=== PATIENT | female | born 1960 | race African-American/Black ===

== ENCOUNTER 2017-02-17 03:40 | Emergency (ER) | payer MEDICARE, MEDICAID ==
[~2017-02-17] VITALS: Ht 162.6 cm; Wt 39.5 kg
[2017-02-17] MEDS ORDERED: MORPHINE SULFATE 4 MG/ML CPJ (NOT FOR IM USE) IV ONE (06:54)
[2017-02-17] MEDS ORDERED: ONDANSETRON HCL 4MG/2ML VIAL ONE (06:55)
[2017-02-17] MEDS ORDERED: SODIUM CHLORIDE 0.9% 1,000 ML IV ONE (07:45)
[2017-02-17 09:08] LABS: CLARITY URINE CLOUDY (CLEAR); COLOR URINE DARK YELLOW (YELLOW); GLUCOSE URINE NEGATIVE (NEGATIVE); KETONES URINE TRACE (NEGATIVE); LEUKOCYTE ESTERASE URINE NEGATIVE (NEGATIVE); NITRITE URINE NEGATIVE (NEGATIVE); OCCULT BLOOD URINE 1+ (NEGATIVE); PROTEIN URINE 2+ (NEGATIVE); SPECIFIC GRAVITY URINE 1.028 (1.005-1.030)
[2017-02-17 11:07] LABS: BASOPHILS % 0.3 % (0.0-2.0); EOSINOPHILS % 0.2 % (0.0-5.0); HEMATOCRIT. 40.2 % (36.0-48.0); LYMPHOCYTES % 20.8 % (20.0-50.0); MEAN CORPUSCULAR VOLUME 74.5 fL (81.0-99.0); MEAN PLATELET VOLUME 7.7 fl (7.4-10.4); MONOCYTES % 10.1 % (2.0-8.0); NEUTROPHILS % 68.6 % (40.0-76.0); PLATELET 220 x1000/uL (130-400)
[2017-02-17 11:23] LABS: CARBON DIOXIDE 31 mEq/L (21-32); CHLORIDE 105 mEq/L (98-107)
[2017-02-17 11:57] VITALS: BP 116/70
[2017-02-17] MEDS ORDERED: SODIUM CHLORIDE 0.9% 10ML VIAL ONE (12:52)
[2017-02-17] MEDS ORDERED: IOHEXOL-300 100 ML BOTTLE ONE (12:52)
== END 2017-02-17 13:59 | disposition home or self-care (01) ==
LOC: ER 03:40
DX: R10.84 Generalized abdominal pain (principal); R11.10 Vomiting, unspecified; N28.1 Cyst of kidney, acquired; Z20.6 Contact with and (suspected) exposure to human immunodeficiency virus [HIV]; Z98.890 Other specified postprocedural states
CPT/HCPCS: 36415; 74177; 80048; 80076; 81001; 83605; 83690; 85025; 96360; 96361; 99285; A4216; J2270; J2405; Q9967

== ENCOUNTER 2017-06-23 03:14 | Emergency (ER) | payer MEDICARE, MEDICAID ==
[~2017-06-23] VITALS: Ht 162.6 cm; Wt 62.0 kg
[2017-06-23] MEDS ORDERED: ONDANSETRON HCL 4MG/2ML VIAL IV STA (03:48)
[2017-06-23] MEDS ORDERED: FAMOTIDINE 20MG/2ML VIAL IV STA (03:48)
[2017-06-23] MEDS ORDERED: SODIUM CHLORIDE 0.9% 1,000 ML IV ONE (03:48)
[2017-06-23] MEDS ORDERED: FENTANYL CITRATE/PF 50MCG/ML 2ML VIAL IV ONE (04:00)
[2017-06-23 04:08] LABS: BASOPHILS % 0.7 % (0.0-2.0); EOSINOPHILS % 0.9 % (0.0-5.0); HEMATOCRIT. 41.5 % (36.0-48.0); HEMOGLOBIN. 13.4 g/dL (12.0-16.0); LYMPHOCYTES % 25.2 % (20.0-50.0); MEAN CORPUSCULAR HEMOGLOBIN 24.3 pg (28.0-32.0); MEAN CORPUSCULAR VOLUME 75.4 fL (81.0-99.0); MEAN PLATELET VOLUME 7.6 fl (7.4-10.4); MONOCYTES % 7.8 % (2.0-8.0); NEUTROPHILS % 65.4 % (40.0-76.0); PLATELET 238 x1000/uL (130-400); RED CELL DISTRIBUTION WIDTH 15.9 % (11.6-14.6)
[2017-06-23 04:13] LABS: PROTHROMBIN TIME 10.5 sec (9.4-11.6)
[2017-06-23 04:23] LABS: CARBON DIOXIDE 32 mEq/L (21-32); CHLORIDE 106 mEq/L (98-107); ETHANOL BLOOD < 10 mg/dL; TROPONIN I < 0.02 ng/mL (0.00-0.04)
[2017-06-23 05:56] VITALS: BP 135/78
== END 2017-06-23 06:10 | disposition home or self-care (01) ==
LOC: ER 03:14
DX: R10.9 Unspecified abdominal pain (principal); K59.00 Constipation, unspecified; K44.9 Diaphragmatic hernia without obstruction or gangrene; F17.210 Nicotine dependence, cigarettes, uncomplicated; M43.19 Spondylolisthesis, multiple sites in spine
CPT/HCPCS: 36415; 71010; 74176; 80053; 83605; 83690; 84484; 85025; 85610; 93005; 96361; 96374; 96375; 99285; G0482; J2405; J3010; J3490; J7030

== ENCOUNTER 2018-02-22 14:36 | Emergency (ER) | payer MEDICARE, MEDICAID ==
[~2018-02-22] VITALS: Ht 167.6 cm; Wt 75.0 kg
[2018-02-22 16:19] LABS: BASOPHILS % 0.9 % (0.0-2.0); EOSINOPHILS % 0.3 % (0.0-5.0); HEMATOCRIT. 42.6 % (36.0-48.0); HEMOGLOBIN. 13.8 g/dL (12.0-16.0); LYMPHOCYTES % 26.3 % (20.0-50.0); MEAN CORPUSCULAR HEMOGLOBIN 24.7 pg (28.0-32.0); MEAN CORPUSCULAR VOLUME 76.3 fL (81.0-99.0); MEAN PLATELET VOLUME 7.7 fl (7.4-10.4); MONOCYTES % 6.5 % (2.0-8.0); PLATELET 224 x1000/uL (130-400); RED BLOOD CELL COUNT 5.58 mill/uL (4.2-5.4); RED CELL DISTRIBUTION WIDTH 15.9 % (11.6-14.6)
[2018-02-22 16:23] LABS: PROTHROMBIN TIME 10.5 sec (9.4-11.6)
[2018-02-22 16:24] LABS: CHLORIDE 103 mEq/L (98-107)
[2018-02-22] MEDS ORDERED: METOCLOPRAMIDE HCL 10MG/2ML VIAL IV STA (17:11)
[2018-02-22] MEDS ORDERED: MORPHINE SULFATE 4 MG/ML CPJ (NOT FOR IM USE) IV STA (17:11)
[2018-02-22] MEDS ORDERED: SODIUM CHLORIDE 0.9% 1,000 ML IV ONE (17:11)
[2018-02-22 22:34] VITALS: BP 145/95
== END 2018-02-22 23:16 | disposition home or self-care (01) ==
LOC: ER 15:00
DX: R10.13 Epigastric pain (principal); M43.16 Spondylolisthesis, lumbar region; Z21 Asymptomatic human immunodeficiency virus [HIV] infection status; Z98.890 Other specified postprocedural states; Z87.11 Personal history of peptic ulcer disease
CPT/HCPCS: 36415; 74177; 80053; 83605; 83690; 85025; 85610; 86850; 86900; 86901; 96361; 96374; 96375; 99285; J2270; J2765; J7030

== ENCOUNTER 2018-08-04 09:09 | Inpatient (IN) | payer MEDICARE, MEDICAID ==
[~2018-08-04] VITALS: Ht 162.6 cm; Wt 46.3 kg
[2018-08-04] MEDS ORDERED: MORPHINE SULFATE 4 MG/ML CPJ (NOT FOR IM USE) IV STA ×3 (09:31→17:32)
[2018-08-04] MEDS ORDERED: ONDANSETRON HCL 4MG/2ML INJ IV STA (09:31)
[2018-08-04] MEDS ORDERED: SODIUM CHLORIDE 0.9% 1,000 ML IV ONE ×2 (09:31→10:15)
[2018-08-04 09:59] LABS: BASOPHILS % 0.3 % (0.0-2.0); HEMATOCRIT. 47.2 % (36.0-48.0); HEMOGLOBIN. 15.5 g/dL (12.0-16.0); LYMPHOCYTES % 13.5 % (20.0-50.0); MEAN CORPUSCULAR HEMOGLOBIN 24.9 pg (28.0-32.0); MEAN CORPUSCULAR VOLUME 75.8 fL (81.0-99.0); MEAN PLATELET VOLUME 8.5 fl (7.4-10.4); MONOCYTES % 8.4 % (2.0-8.0); NEUTROPHILS % 77.8 % (40.0-76.0); PLATELET 253 x1000/uL (130-400); RED BLOOD CELL COUNT 6.23 mill/uL (4.2-5.4); RED CELL DISTRIBUTION WIDTH 16.1 % (11.6-14.6)
[2018-08-04 10:02] LABS: CHLORIDE 93 mEq/L (98-107)
[2018-08-04 10:08] LABS: ETHANOL BLOOD < 10 mg/dL
[2018-08-04] MEDS ORDERED: DEXTROSE 50% WATER 50ML SYRINGE IV ONE (10:30)
[2018-08-04] MEDS ORDERED: INSULIN REGULAR (HUMULIN R) 300UNITS/3ML IV ONE (10:30)
[2018-08-04] MEDS ORDERED: CALCIUM GLUCONATE 1,000 MG in DEXT 5% WATER 100 ML IV ONE (10:30)
[2018-08-04 10:48] LABS: INR 1.1; PROTHROMBIN TIME 10.7 sec (9.1-11.1)
[2018-08-04 10:52] LABS: CLARITY URINE CLOUDY (CLEAR); COLOR URINE YELLOW (YELLOW); KETONES URINE NEGATIVE (NEGATIVE); LEUKOCYTE ESTERASE URINE NEGATIVE (NEGATIVE); NITRITE URINE NEGATIVE (NEGATIVE); OCCULT BLOOD URINE 1+ (NEGATIVE); PROTEIN URINE 2+ (NEGATIVE); UROBILINOGEN URINE 0.2 E.U./dL (0.2-1.0)
[2018-08-04 11:14] LABS: *AMPHETAMINES SCREEN URINE NEGATIVE (NEGATIVE); *BARBITURATES SCREEN URINE NEGATIVE (NEGATIVE); *BENZODIAZEPINES SCREEN URINE NEGATIVE (NEGATIVE); *COCAINE SCREEN URINE PRESUMTIVE POSITIVE (NEGATIVE); CANNABINOID URINE SCREEN NEGATIVE (NEGATIVE); METHADONE URINE SCREEN NEGATIVE (NEGATIVE); OPIATES URINE SCREEN PRESUMTIVE POSITIVE (NEGATIVE); PHENCYCLIDINE URINE SCREEN NEGATIVE (NEGATIVE)
[2018-08-04] MEDS ORDERED: POLYETHYLENE GLYCOL 3350 (17GM) 1 DOSE PACK PO ONE (12:15)
[2018-08-04] MEDS ORDERED: ACETAMINOPHEN 650MG SUPP PR PRN (18:45)
[2018-08-04] MEDS ORDERED: IPRATROPIUM/ALBUTEROL 0.5-3(2.5)MG/3ML NEB INH PRN (18:45)
[2018-08-04] MEDS ORDERED: HYDROCODONE/ACETAMINOPHEN 10/325MG TABLET PO PRN (18:45)
[2018-08-04] MEDS ORDERED: DOCUSATE SODIUM 100MG CAPSULE PO PRN (18:45)
[2018-08-04] MEDS ORDERED: CLONIDINE 0.1MG TABLET PO PRN (18:45)
[2018-08-04] MEDS ORDERED: GUAIFENESIN 200MG/10ML SUGAR FREE UDC PO PRN (18:45)
[2018-08-04] MEDS ORDERED: MAGNESIUM/ALUMINUM HYDROXIDE/SIMETHICONE 30ML UDC PO PRN (18:45)
[2018-08-04] MEDS ORDERED: HYDROCODONE/ACETAMINOPHEN 5/325MG TABLET PO PRN (18:45)
[2018-08-04] MEDS ORDERED: ACETAMINOPHEN 325MG TABLET PO PRN (18:45)
[2018-08-04] MEDS ORDERED: ONDANSETRON HCL 4MG/2ML INJ IV PRN (18:45)
[2018-08-04] MEDS ORDERED: ACETAMINOPHEN 650MG/20.3ML UDC GT PRN (18:45)
[2018-08-04 20:00] VITALS: BP 115/68
[2018-08-04] MEDS ORDERED: EMTR1TAB13 MT (20:50)
[2018-08-04] MEDS ORDERED: CEFTRIAXONE 1 G PREMIX 50 ML IV SCH (21:00)
[2018-08-04] MEDS ORDERED: ENOXAPARIN 40MG/0.4ML SYR SUBCUT SCH (21:00)
[2018-08-04] MEDS: ENOXAPARIN 30MG/0.3ML SYR SUBCUT SCH (21:00)
[2018-08-04] MEDS: SODIUM CHLORIDE 0.9% INJ 3ML FLUSH IVF SCH (22:10)
[2018-08-04] MEDS: FAMOTIDINE 20MG/2ML VIAL IV SCH (22:10)
[2018-08-04] MEDS: SODIUM CHLORIDE 0.45% 1,000 ML IV SCH (22:11)
[2018-08-04] MEDS ORDERED: [UNRECOGNIZED DRUG - OTHER] MT SCH (22:30)
[2018-08-05] VITALS: BP 94/51
[2018-08-05] MEDS: METOCLOPRAMIDE HCL 10MG/2ML VIAL IV SCH ×4 (01:57→17:32)
[2018-08-05 03:46] VITALS: BP 97/64
[2018-08-05] MEDS: SODIUM CHLORIDE 0.45% 1,000 ML IV SCH ×2 (05:52→17:32)
[2018-08-05] MEDS: SODIUM CHLORIDE 0.9% INJ 3ML FLUSH IVF SCH ×3 (05:52→21:13)
[2018-08-05 06:55] LABS: BASOPHILS % 0.4 % (0.0-2.0); EOSINOPHILS % 0.6 % (0.0-5.0); HEMOGLOBIN. 12.6 g/dL (12.0-16.0); LYMPHOCYTES % 40.1 % (20.0-50.0); MEAN CORPUSCULAR HEMOGLOBIN 24.4 pg (28.0-32.0); MEAN CORPUSCULAR VOLUME 77.3 fL (81.0-99.0); MEAN PLATELET VOLUME 8.2 fl (7.4-10.4); MONOCYTES % 9.4 % (2.0-8.0); NEUTROPHILS % 49.5 % (40.0-76.0); PLATELET 203 x1000/uL (130-400); RED BLOOD CELL COUNT 5.18 mill/uL (4.2-5.4)
[2018-08-05 07:23] LABS: CHLORIDE 105 mEq/L (98-107)
[2018-08-05 07:37] LABS: HDL CHOLESTEROL 85 mg/dL (40-59); LDL CHOLESTEROL 67 mg/dL (5-100)
[2018-08-05 08:00] VITALS: BP 94/63
[2018-08-05] MEDS: FAMOTIDINE 20MG/2ML VIAL IV SCH (08:41)
[2018-08-05 12:00] VITALS: BP 103/61
[2018-08-05] MEDS ORDERED: ACYC200C PO (13:32)
[2018-08-05 16:00] VITALS: BP 101/56
[2018-08-05] MEDS ORDERED: CEFTRIAXONE 1 G PREMIX 50 ML IV SCH (18:00)
[2018-08-05 20:00] VITALS: BP 86/43
[2018-08-05] MEDS: ENOXAPARIN 30MG/0.3ML SYR SUBCUT SCH (21:12)
[2018-08-06] VITALS: BP 128/73
[2018-08-06] MEDS: METOCLOPRAMIDE HCL 10MG/2ML VIAL IV SCH ×3 (01:07→11:59)
[2018-08-06] MEDS: SODIUM CHLORIDE 0.45% 1,000 ML IV SCH ×2 (01:07→10:49)
[2018-08-06 03:50] VITALS: BP 117/75
[2018-08-06] MEDS: SODIUM CHLORIDE 0.9% INJ 3ML FLUSH IVF SCH ×2 (05:54→13:58)
[2018-08-06 08:19] VITALS: BP 118/74
[2018-08-06] MEDS: FAMOTIDINE 20MG/2ML VIAL IV SCH (08:31)
[2018-08-06] MEDS ORDERED: ODEFSEY PO SCH (09:00)
[2018-08-06] MEDS ORDERED: ACYCLOVIR 400 MG TABLET PO SCH (09:00)
[2018-08-06] MEDS ORDERED: MEDICATION NOT ON FORMULARY EA (Acyclovir 400 MG) PO SCH (09:00)
[2018-08-06 11:56] VITALS: BP 105/63
[2018-08-06 16:00] VITALS: BP_SYST 105; BP_SYST 115; BP_DIAS 63; BP_DIAS 70
[2018-08-06 17:19] VITALS: BP 118/70
== END 2018-08-06 18:20 | disposition home or self-care (01) | DRG 917 ==
LOC: ER 09:09 → 6WST 10:30 → EDBEDREQ 10:33 → ENRESERV 17:10
PROVIDERS: ADMIT Family Medicine; ATTEND Family Medicine
DX: T40.5X1A Poisoning by cocaine, accidental (unintentional), initial encounter (principal); N17.0 Acute kidney failure with tubular necrosis; E87.1 Hypo-osmolality and hyponatremia; N39.0 Urinary tract infection, site not specified; Z21 Asymptomatic human immunodeficiency virus [HIV] infection status; E87.5 Hyperkalemia; N18.9 Chronic kidney disease, unspecified; K21.9 Gastro-esophageal reflux disease without esophagitis; K59.00 Constipation, unspecified; F14.90 Cocaine use, unspecified, uncomplicated; E86.0 Dehydration; R10.9 Unspecified abdominal pain
CPT/HCPCS: 36415; 71045; 74176; 76770; 80048; 80061; 80305; 82962; 83605; 84484; 99285; G0482; J0610; J0696; J1650; J1815; J2270; J2405; J2765; J3490; J7030; J7050; J7060

== ENCOUNTER 2018-08-13 05:09 | Emergency (ER) | payer MEDICARE, MEDICAID ==
[~2018-08-13] VITALS: Ht 165.1 cm; Wt 71.0 kg
[~2018-08-13 05:09] MED LIST: ACYC200C PO; EMTR1TAB13 MT
[2018-08-13] MEDS ORDERED: KETOROLAC 30MG/ML VIAL IV STA (05:31)
[2018-08-13] MEDS ORDERED: ONDANSETRON HCL 4MG/2ML INJ IV STA (05:31)
[2018-08-13] MEDS ORDERED: SODIUM CHLORIDE 0.9% 1,000 ML IV ONE ×2 (05:36→08:00)
[2018-08-13 06:41] LABS: BASOPHILS % 0.6 % (0.0-2.0); EOSINOPHILS % 0.5 % (0.0-5.0); HEMATOCRIT. 44.9 % (36.0-48.0); HEMOGLOBIN. 14.5 g/dL (12.0-16.0); LYMPHOCYTES % 22.4 % (20.0-50.0); MEAN CORPUSCULAR HEMOGLOBIN 24.8 pg (28.0-32.0); MEAN CORPUSCULAR VOLUME 76.9 fL (81.0-99.0); MEAN PLATELET VOLUME 8.5 fl (7.4-10.4); MONOCYTES % 11.7 % (2.0-8.0); NEUTROPHILS % 64.8 % (40.0-76.0); PLATELET 256 x1000/uL (130-400); RED BLOOD CELL COUNT 5.83 mill/uL (4.2-5.4); RED CELL DISTRIBUTION WIDTH 16.1 % (11.6-14.6)
[2018-08-13 06:45] LABS: CLARITY URINE CLEAR (CLEAR); COLOR URINE YELLOW (YELLOW); KETONES URINE TRACE (NEGATIVE); LEUKOCYTE ESTERASE URINE NEGATIVE (NEGATIVE); NITRITE URINE NEGATIVE (NEGATIVE); OCCULT BLOOD URINE TRACE (NEGATIVE); PROTEIN URINE 2+ (NEGATIVE)
[2018-08-13 06:51] LABS: CHLORIDE 98 mEq/L (98-107)
[2018-08-13 07:36] LABS: *AMPHETAMINES SCREEN URINE NEGATIVE (NEGATIVE); *BARBITURATES SCREEN URINE NEGATIVE (NEGATIVE); *BENZODIAZEPINES SCREEN URINE NEGATIVE (NEGATIVE); *COCAINE SCREEN URINE PRESUMTIVE POSITIVE (NEGATIVE); CANNABINOID URINE SCREEN PRESUMTIVE POSITIVE (NEGATIVE); METHADONE URINE SCREEN NEGATIVE (NEGATIVE); OPIATES URINE SCREEN PRESUMTIVE POSITIVE (NEGATIVE); PHENCYCLIDINE URINE SCREEN NEGATIVE (NEGATIVE)
[2018-08-13] MEDS ORDERED: VISCOUS LIDOCAINE 2% 15 ML UDC PO ONE (08:00)
[2018-08-13] MEDS ORDERED: DICYCLOMINE 10 MG/5 ML ORAL SYR PO ONE (08:00)
[2018-08-13] MEDS ORDERED: MAGNESIUM/ALUMINUM HYDROXIDE/SIMETHICONE 30ML UDC PO ONE (08:00)
[2018-08-13] MEDS ORDERED: FAMOTIDINE 20MG/2ML VIAL IV ONE (08:00)
[2018-08-13 10:21] VITALS: BP 128/80
== END 2018-08-13 10:32 | disposition home or self-care (01) ==
LOC: ER 05:09
DX: R10.13 Epigastric pain (principal); R11.2 Nausea with vomiting, unspecified; R07.89 Other chest pain; R31.9 Hematuria, unspecified; F14.10 Cocaine abuse, uncomplicated; F12.10 Cannabis abuse, uncomplicated; F11.10 Opioid abuse, uncomplicated; F17.200 Nicotine dependence, unspecified, uncomplicated; Z79.899 Other long term (current) drug therapy
CPT/HCPCS: 36415; 71045; 80053; 80305; 81003; 83690; 83880; 84484; 85025; 93005; 96361; 96374; 96375; 99285; J1885; J2405; J3490; J7030

== ENCOUNTER 2018-11-29 02:05 | Emergency (ER) | payer MEDICARE, MEDICAID ==
[~2018-11-29] VITALS: Ht 162.6 cm; Wt 45.0 kg
[2018-11-29] MEDS ORDERED: KETOROLAC 30MG/ML VIAL IV STA (09:03)
[2018-11-29] MEDS ORDERED: SODIUM CHLORIDE 0.9% 1,000 ML IV ONE (09:03)
[2018-11-29] MEDS ORDERED: ONDANSETRON HCL 4MG/2ML INJ IV STA (09:03)
[2018-11-29] MEDS ORDERED: FAMOTIDINE 20MG/2ML VIAL IV ONE (09:15)
[2018-11-29 10:24] LABS: BASOPHILS % 0.5 % (0.0-2.0); EOSINOPHILS % 0.4 % (0.0-5.0); HEMATOCRIT. 55.9 % (36.0-48.0); HEMOGLOBIN. 17.7 g/dL (12.0-16.0); LYMPHOCYTES % 19.5 % (20.0-50.0); MEAN CORPUSCULAR VOLUME 79.2 fL (81.0-99.0); MEAN PLATELET VOLUME 8.4 fl (7.4-10.4); NEUTROPHILS % 72.6 % (40.0-76.0); PLATELET 245 x1000/uL (130-400); RED BLOOD CELL COUNT 7.07 mill/uL (4.2-5.4); RED CELL DISTRIBUTION WIDTH 15.5 % (11.6-14.6)
[2018-11-29] MEDS ORDERED: LORAZEPAM 2MG/ML CPJ IM ONE (10:30)
[2018-11-29] MEDS ORDERED: DIPHENHYDRAMINE 50MG/ML VIAL IM ONE (10:30)
[2018-11-29 10:40] LABS: CHLORIDE 90 mEq/L (98-107)
[2018-11-29 12:07] LABS: CLARITY URINE CLOUDY (CLEAR); COLOR URINE YELLOW (YELLOW); KETONES URINE NEGATIVE (NEGATIVE); LEUKOCYTE ESTERASE URINE NEGATIVE (NEGATIVE); NITRITE URINE NEGATIVE (NEGATIVE); OCCULT BLOOD URINE 1+ (NEGATIVE); PROTEIN URINE 1+ (NEGATIVE); SPECIFIC GRAVITY URINE 1.024 (1.005-1.030); UROBILINOGEN URINE 0.2 E.U./dL (0.2-1.0)
[2018-11-29 13:02] VITALS: BP 115/76
== END 2018-11-29 15:13 | disposition home or self-care (01) ==
LOC: ER 02:05
DX: K59.00 Constipation, unspecified (principal); E86.0 Dehydration; R73.9 Hyperglycemia, unspecified; F14.10 Cocaine abuse, uncomplicated; R30.0 Dysuria
CPT/HCPCS: 36415; 74176; 80053; 81003; 83690; 85025; 99284; J1200; J1885; J2060; J2405; J3490; J7030

== ENCOUNTER 2019-10-15 21:56 | Inpatient (IN) | payer MEDICARE, MEDICAID ==
[~2019-10-15] VITALS: Ht 172.7 cm; Wt 45.8 kg
[~2019-10-15 21:56] MED LIST changes: +ALBU18HF2 IH; +AMLO5TAB88 MT; +IPRA3AMP9 NEB; +LOSA50TA41 MT; +P20 MT; +SULF1TAB48 MT
[2019-10-15] MEDS ORDERED: MORPHINE SULFATE 4 MG/ML CPJ (NOT FOR IM USE) IV STA (23:38)
[2019-10-15] MEDS ORDERED: SODIUM CHLORIDE 0.9% 1,000 ML IV ONE (23:38)
[2019-10-15] MEDS ORDERED: ONDANSETRON HCL 4MG/2ML INJ IV STA (23:38)
[2019-10-16 00:13] LABS: BASOPHILS % 0.8 % (0.0-2.0); EOSINOPHILS % 0.1 % (0.0-5.0); HEMOGLOBIN. 11.9 g/dL (12.0-16.0); LYMPHOCYTES % 15.2 % (20.0-50.0); MEAN CORPUSCULAR HEMOGLOBIN 24.9 pg (28.0-32.0); MEAN CORPUSCULAR VOLUME 77.4 fL (81.0-99.0); MEAN PLATELET VOLUME 8.3 fl (7.4-10.4); MONOCYTES % 5.5 % (2.0-8.0); NEUTROPHILS % 78.4 % (40.0-76.0); PLATELET 276 x1000/uL (130-400); RED BLOOD CELL COUNT 4.78 mill/uL (4.2-5.4); RED CELL DISTRIBUTION WIDTH 16.3 % (11.6-14.6)
[2019-10-16 00:21] LABS: CHLORIDE 104 mEq/L (98-107)
[2019-10-16 00:22] LABS: BG BASE EXCESS 2.7 mmol/L (-2.0-2.0); BG CARBOXYHEMOGLOBIN 2.5 % (0.5-1.5); BG DEOXYHEMOGLOBIN 4.6 % (0.0-5.0); BG FRACTION INSPIRED OXYGEN 21; BG HCO3 ACT 26.9 mmol/L (22.0-26.0); BG OXYGEN SATURATION 95.3 % (92.0-98.5); BG OXYHEMOGLOBIN 92.9 % (94.0-97.0); BG PCO2 40.1 mmHg (35.0-45.0); BG PH 7.445 (7.350-7.450); BG PO2 76.6 mmHg (75.0-100.0); BG SAMPLE SITE RIGHT BRACHIAL; BG VENT MODE ROOM AIR
[2019-10-16 00:23] LABS: INR 0.9; PARTIAL THROMBOPLASTIN TIME 23.1 sec (23.4-31.0); PROTHROMBIN TIME 9.6 sec (9.6-11.0)
[2019-10-16 00:25] LABS: ETHANOL BLOOD < 10 mg/dL
[2019-10-16 02:35] LABS: CLARITY URINE CLOUDY (CLEAR); COLOR URINE YELLOW (YELLOW); KETONES URINE NEGATIVE (NEGATIVE); LEUKOCYTE ESTERASE URINE NEGATIVE (NEGATIVE); NITRITE URINE NEGATIVE (NEGATIVE); OCCULT BLOOD URINE NEGATIVE (NEGATIVE); PH URINE >=9.0 (4.5-8.0); PROTEIN URINE 1+ (NEGATIVE); SPECIFIC GRAVITY URINE 1.018 (1.005-1.030); UROBILINOGEN URINE 0.2 E.U./dL (0.2-1.0)
[2019-10-16 02:59] LABS: *AMPHETAMINES SCREEN URINE NEGATIVE (NEGATIVE); *BARBITURATES SCREEN URINE NEGATIVE (NEGATIVE); *BENZODIAZEPINES SCREEN URINE NEGATIVE (NEGATIVE); *COCAINE SCREEN URINE PRESUMTIVE POSITIVE (NEGATIVE); OPIATES URINE SCREEN PRESUMTIVE POSITIVE (NEGATIVE); PHENCYCLIDINE URINE SCREEN NEGATIVE (NEGATIVE)
[2019-10-16 03:00] LABS: CANNABINOID URINE SCREEN NEGATIVE (NEGATIVE); METHADONE URINE SCREEN NEGATIVE (NEGATIVE)
[2019-10-16] MEDS ORDERED: SORBITOL 70% SOLN 30ML PO ONE (03:00)
[2019-10-16] MEDS ORDERED: MORPHINE SULFATE 4 MG/ML CPJ (NOT FOR IM USE) IV ONE (03:00)
[2019-10-16] MEDS ORDERED: ONDANSETRON HCL 4MG/2ML INJ IV ONE (03:00)
[2019-10-16] MEDS ORDERED: NA PHOS,M-B/NA PHOS,DI-BA ENEMA 118ML PR ONE (03:00)
[2019-10-16] MEDS ORDERED: LORAZEPAM 2MG/ML CPJ IV ONE (05:00)
[2019-10-16] MEDS ORDERED: METOCLOPRAMIDE HCL 10MG/2ML VIAL IV ONE (05:00)
[2019-10-16] MEDS ORDERED: FENTANYL CITRATE/PF 50MCG/ML 2ML VIAL IV ONE (06:00)
[2019-10-16] MEDS ORDERED: DOCUSATE SODIUM 100MG CAPSULE PO PRN (09:00)
[2019-10-16] MEDS ORDERED: GUAIFENESIN 200MG/10ML SUGAR FREE UDC PO PRN (09:00)
[2019-10-16] MEDS ORDERED: NA PHOS,M-B/NA PHOS,DI-BA ENEMA 118ML PR PRN (09:00)
[2019-10-16] MEDS ORDERED: ZOLPIDEM TARTRATE 5MG TABLET PO PRN (09:00)
[2019-10-16] MEDS ORDERED: ACETAMINOPHEN 325MG TABLET PO PRN (09:00)
[2019-10-16] MEDS ORDERED: CLONIDINE 0.1MG TABLET PO PRN (09:00)
[2019-10-16] MEDS ORDERED: IPRATROPIUM/ALBUTEROL 0.5-3(2.5)MG/3ML NEB NEB PRN (09:00)
[2019-10-16] MEDS ORDERED: MAGNESIUM/ALUMINUM HYDROXIDE/SIMETHICONE 30ML UDC PO PRN (09:00)
[2019-10-16] MEDS ORDERED: ONDANSETRON HCL 4MG/2ML INJ IV PRN (09:00)
[2019-10-16 12:00] VITALS: BP 130/82
[2019-10-16 12:42] LABS: T4 FREE 1.17 ng/dL (0.76-1.46)
[2019-10-16 12:52] LABS: FOLIC ACID (FOLATE) SERUM 12.9 ng/mL (>5.38)
[2019-10-16] MEDS: LACTULOSE 20G/30ML UDC PO SCH ×3 (13:06→22:21)
[2019-10-16] MEDS: ENOXAPARIN 40MG/0.4ML SYR SUBCUT SCH (13:06)
[2019-10-16 16:00] VITALS: BP 128/82
[2019-10-16 17:02] VITALS: BP 122/68
[2019-10-16] MEDS: LORAZEPAM 0.5MG TABLET PO PRN (19:49)
[2019-10-16] MEDS: KETOROLAC 15MG/ML VIAL IV PRN (19:50)
[2019-10-16 20:00] VITALS: BP 103/67
[2019-10-17] VITALS (17 sets, daily range): BP systolic 47–167; BP diastolic 26–107
[2019-10-17] MEDS: KETOROLAC 15MG/ML VIAL IV PRN ×2 (01:20→08:13)
[2019-10-17] MEDS: LACTULOSE 20G/30ML UDC PO SCH ×7 (01:20→23:58)
[2019-10-17] MEDS: LORAZEPAM 0.5MG TABLET PO PRN (04:01)
[2019-10-17] MEDS: ENOXAPARIN 40MG/0.4ML SYR SUBCUT SCH (08:13)
[2019-10-17] MEDS: DEXT 5%/LACTATED RINGERS 1,000 ML IV SCH ×2 (08:13→08:34)
[2019-10-17] MEDS: PANTOPRAZOLE SODIUM 40 MG/VIAL IV SCH (08:13)
[2019-10-17] MEDS ORDERED: BISACODYL 10MG SUPP PR NR (10:00)
[2019-10-17] MEDS ORDERED: MINERAL OIL ENEMA 133ML PR NR (11:00)
[2019-10-17] MEDS: METOCLOPRAMIDE HCL 10MG/2ML VIAL IV SCH ×3 (11:01→23:58)
[2019-10-17] MEDS ORDERED: DIATR MEGLU/DIATRIZOATE SOLN 120ML ONE (15:12)
[2019-10-17] MEDS: DEXT 5%/0.45% NACL 1000ML 1,000 ML IV SCH ×2 (16:12→22:46)
[2019-10-17] MEDS ORDERED: BUPIVACAINE HCL 0.5% (5MG/ML) 50ML ONE (16:33)
[2019-10-17] MEDS ORDERED: PIPERACILLIN/TAZOBACTAM 3.375 G in DEXT 5% WATER 100 ML IV SCH (17:00)
[2019-10-17] MEDS ORDERED: PIPERACILLIN/TAZOBACTAM 3.375 G/VIAL IV SCH (17:00)
[2019-10-17] MEDS ORDERED: FENTANYL CITRATE/PF 50MCG/ML 2ML VIAL ONE (17:09)
[2019-10-17] MEDS ORDERED: ONDANSETRON HCL 4MG/2ML INJ ONE (17:10)
[2019-10-17] MEDS ORDERED: GLYCOPYRROLATE 0.2 MG/ML 2ML VIAL ONE (17:10)
[2019-10-17] MEDS ORDERED: MIDAZOLAM HCL 2 MG/2 ML VIAL ONE (17:10)
[2019-10-17] MEDS ORDERED: PHENYLEPHRINE HCL 10 MG/ML 1ML (IV VIAL) IV ONE (17:10)
[2019-10-17] MEDS ORDERED: CEFAZOLIN SODIUM 1000MG/VIAL ONE (17:10)
[2019-10-17] MEDS ORDERED: LIDOCAINE HCL/PF 1% 10 MG/ML 5ML VIAL ONE (17:10)
[2019-10-17] MEDS ORDERED: SUCCINYLCHOLINE CHLORIDE 200MG/10ML IV ONE (17:10)
[2019-10-17] MEDS ORDERED: ROCURONIUM BROMIDE 10MG/ML VIAL 5ML IV ONE ×2 (17:10→17:49)
[2019-10-17] MEDS ORDERED: EPHEDRINE SULFATE 50MG/ML VIAL ONE (17:10)
[2019-10-17] MEDS ORDERED: SODIUM CHLORIDE 0.9% 10ML VIAL ONE (17:10)
[2019-10-17] MEDS ORDERED: PROPOFOL 200MG/20ML VIAL IV ONE (17:10)
[2019-10-17] MEDS ORDERED: METOCLOPRAMIDE HCL 10MG/2ML VIAL ONE (17:10)
[2019-10-17] MEDS ORDERED: NEOSTIGMINE METHYLSULFATE 1MG/ML 10 ML VIAL ONE (17:10)
[2019-10-17] MEDS ORDERED: METHYLENE BLUE 50 MG/10 ML AMP IV ONE (17:51)
[2019-10-17] MEDS ORDERED: ALBUMIN HUMAN 12.5G/250ML (5%) IV ONE (18:02)
[2019-10-17] MEDS ORDERED: NOREPINEPHRINE 4MG/250ML PMX 250 ML IV ONE (19:15)
[2019-10-17] MEDS ORDERED: PROPOFOL 10MG/ML 100ML 100 ML IV PRN (19:15)
[2019-10-17] MEDS ORDERED: ACETAMINOPHEN 650MG SUPP PR PRN (19:15)
[2019-10-17] MEDS ORDERED: NOREPINEPHRINE 4 MG in DEXTROSE 5% WATER 250 ML IV PRN (19:15)
[2019-10-17 20:33] LABS: BG BASE EXCESS -5.6 mmol/L (-2.0-2.0); BG CARBOXYHEMOGLOBIN 0.1 % (0.5-1.5); BG DEOXYHEMOGLOBIN 2.1 % (0.0-5.0); BG FRACTION INSPIRED OXYGEN 100; BG METHEMOGLOBIN 0.2 % (0.0-1.5); BG OXYGEN SATURATION 97.9 % (92.0-98.5); BG OXYHEMOGLOBIN 97.6 % (94.0-97.0); BG PCO2 39.6 mmHg (35.0-45.0); BG PH 7.321 (7.350-7.450); BG PO2 122.3 mmHg (75.0-100.0); BG SAMPLE SITE RIGHT BRACHIAL; BG TIDAL VOLUME(mL) 500 mL; BG TOTAL HEMOGLOBIN 12.2 g/dL (12.0-18.0); BG VENT MODE VENT - A/C; BG VENT RATE 14 set
[2019-10-17] MEDS: IPRATROPIUM/ALBUTEROL 0.5-3(2.5)MG/3ML NEB HHN SCH (21:00)
[2019-10-17] MEDS: PIPERACILLIN/TAZOBACTAM 3.375 G in DEXT 5% WATER 100 ML IV SCH (22:30)
[2019-10-17] MEDS ORDERED: IOHEXOL-300 100 ML BOTTLE ONE (23:16)
[2019-10-18] VITALS (43 sets, daily range): BP systolic 70–132; BP diastolic 38–77
[2019-10-18] MEDS: IPRATROPIUM/ALBUTEROL 0.5-3(2.5)MG/3ML NEB HHN SCH ×7 (00:23→23:44)
[2019-10-18] MEDS: PIPERACILLIN/TAZOBACTAM 3.375 G in DEXT 5% WATER 100 ML IV SCH (03:49)
[2019-10-18] MEDS: LACTULOSE 20G/30ML UDC PO SCH ×2 (03:50→08:00)
[2019-10-18] MEDS: METOCLOPRAMIDE HCL 10MG/2ML VIAL IV SCH (05:17)
[2019-10-18 05:31] LABS: HEMOGLOBIN. 10.7 g/dL (12.0-16.0); MEAN CORPUSCULAR HEMOGLOBIN 24.6 pg (28.0-32.0); MEAN CORPUSCULAR VOLUME 75.9 fL (81.0-99.0); MEAN PLATELET VOLUME 8.5 fl (7.4-10.4); PLATELET 243 x1000/uL (130-400); RED BLOOD CELL COUNT 4.35 mill/uL (4.2-5.4); RED CELL DISTRIBUTION WIDTH 16.5 % (11.6-14.6)
[2019-10-18] MEDS: DEXT 5%/0.45% NACL 1000ML 1,000 ML IV SCH ×3 (06:00→17:57)
[2019-10-18] MEDS: ENOXAPARIN 40MG/0.4ML SYR SUBCUT SCH (08:37)
[2019-10-18] MEDS: PANTOPRAZOLE SODIUM 40 MG/VIAL IV SCH (08:37)
[2019-10-18] MEDS ORDERED: DEXTROSE 50% WATER 50ML SYRINGE IV PRN (09:30)
[2019-10-18 11:19] LABS: BG CARBOXYHEMOGLOBIN 0.3 % (0.5-1.5); BG DEOXYHEMOGLOBIN 2.5 % (0.0-5.0); BG FRACTION INSPIRED OXYGEN 60; BG HCO3 ACT 19.3 mmol/L (22.0-26.0); BG METHEMOGLOBIN 0.2 % (0.0-1.5); BG OXYGEN SATURATION 97.5 % (92.0-98.5); BG PCO2 29.1 mmHg (35.0-45.0); BG PH 7.439 (7.350-7.450); BG PO2 105.5 mmHg (75.0-100.0); BG SAMPLE SITE A-LINE; BG TIDAL VOLUME(mL) 500 mL; BG TOTAL HEMOGLOBIN 10.5 g/dL (12.0-18.0); BG VENT MODE VENT - A/C; BG VENT RATE 14 set
[2019-10-18] MEDS: BLOOD SUGAR DIAGNOSTIC STRIP TEST SCH ×2 (11:40→17:51)
[2019-10-18] MEDS: PIPERACILLIN/TAZOBACTAM 2.25 G in DEXTROSE 5% WATER 50 ML IV SCH ×3 (11:44→23:50)
[2019-10-18] MEDS: INSULIN LISPRO 100 UNITS/ML SUBCUT SCH ×3 (11:47→21:00)
[2019-10-18 14:42] LABS: PLATELET ESTIMATE NORMAL
[2019-10-18] MEDS: PROPOFOL 10MG/ML 100ML 100 ML IV PRN ×2 (16:34→16:36)
[2019-10-19] VITALS (83 sets, daily range): BP systolic 79–156; BP diastolic 2–77
[2019-10-19] MEDS: BLOOD SUGAR DIAGNOSTIC STRIP TEST SCH ×5 (00:05→23:58)
[2019-10-19] MEDS: DEXT 5%/0.45% NACL 1000ML 1,000 ML IV SCH (01:03)
[2019-10-19] MEDS: IPRATROPIUM/ALBUTEROL 0.5-3(2.5)MG/3ML NEB HHN SCH ×5 (03:21→20:38)
[2019-10-19] MEDS: PIPERACILLIN/TAZOBACTAM 2.25 G in DEXTROSE 5% WATER 50 ML IV SCH ×4 (05:59→23:58)
[2019-10-19 07:22] LABS: HEMATOCRIT. 27.6 % (36.0-48.0); HEMOGLOBIN. 9.1 g/dL (12.0-16.0); MEAN CORPUSCULAR HEMOGLOBIN 24.9 pg (28.0-32.0); MEAN CORPUSCULAR VOLUME 75.1 fL (81.0-99.0); MEAN PLATELET VOLUME 9.1 fl (7.4-10.4); PLATELET 155 x1000/uL (130-400); RED BLOOD CELL COUNT 3.67 mill/uL (4.2-5.4); RED CELL DISTRIBUTION WIDTH 16.1 % (11.6-14.6)
[2019-10-19] MEDS: PROPOFOL 10MG/ML 100ML 100 ML IV PRN (07:27)
[2019-10-19] MEDS: INSULIN LISPRO 100 UNITS/ML SUBCUT SCH ×4 (08:01→18:01)
[2019-10-19 08:13] LABS: BG BASE EXCESS -0.5 mmol/L (-2.0-2.0); BG CARBOXYHEMOGLOBIN 0.5 % (0.5-1.5); BG DEOXYHEMOGLOBIN 1.7 % (0.0-5.0); BG FRACTION INSPIRED OXYGEN 51; BG HCO3 ACT 22.6 mmol/L (22.0-26.0); BG METHEMOGLOBIN 0.2 % (0.0-1.5); BG OXYGEN SATURATION 98.3 % (92.0-98.5); BG OXYHEMOGLOBIN 97.6 % (94.0-97.0); BG PCO2 31.1 mmHg (35.0-45.0); BG PO2 135.4 mmHg (75.0-100.0); BG SAMPLE SITE RIGHT RADIAL; BG TIDAL VOLUME(mL) 500 mL; BG TOTAL HEMOGLOBIN 8.4 g/dL (12.0-18.0); BG VENT MODE VENT - A/C; BG VENT RATE 14 set
[2019-10-19 08:53] LABS: PLATELET ESTIMATE NORMAL
[2019-10-19] MEDS: PANTOPRAZOLE SODIUM 40 MG/VIAL IV SCH (09:06)
[2019-10-19 09:09] LABS: ABSOLUTE LYMPHOCYTES 0.6 x10E3/uL (0.7-3.1); ABSOLUTE MONOCYTES 0.3 x10E3/uL (0.1-0.9); ABSOLUTE NEUTROPHILS 7.7 x10E3/uL (1.4-7.0); BASOPHILS 0 % (Not Estab.); HEMATOCRIT 32.6 % (34.0-46.6); HEMATOLOGY COMMENT Note: (.); HEMOGLOBIN 10.7 g/dL (11.1-15.9); LYMPHOCYTES 7 % (Not Estab.); MEAN CORPUSCULAR HEMOGLOBIN 24.6 pg (26.6-33.0); MEAN CORPUSCULAR HGB CONC. 32.8 g/dL (31.5-35.7); MEAN CORPUSCULAR VOLUME 75 fL (79-97); MONOCYTES 3 % (Not Estab.); NEUTROPHILS 84 % (Not Estab.); PLATELETS 279 x10E3/uL (150-450); RBC 4.35 x10E6/uL (3.77-5.28); RED CELL DISTRIBUTION WIDTH 18.4 % (11.7-15.4); WBC 8.6 x10E3/uL (3.4-10.8)
[2019-10-19] MEDS ORDERED: POTASSIUM CHLORIDE INJ 60 MEQ in DEXT 5% WATER 250 ML IV SCH (10:30)
[2019-10-19] MEDS ORDERED: DEXT 5%/0.9% NACL KCL 20MEQ/L 1,000 ML IV SCH (10:30)
[2019-10-19 12:43] LABS: BG DEOXYHEMOGLOBIN 2.6 % (0.0-5.0); BG FRACTION INSPIRED OXYGEN 40; BG HCO3 ACT 18.9 mmol/L (22.0-26.0); BG METHEMOGLOBIN 0.3 % (0.0-1.5); BG OXYGEN SATURATION 97.4 % (92.0-98.5); BG OXYHEMOGLOBIN 97.1 % (94.0-97.0); BG PCO2 26.2 mmHg (35.0-45.0); BG PH 7.475 (7.350-7.450); BG PO2 105.1 mmHg (75.0-100.0); BG PRESSURE SUPPORT 8; BG SAMPLE SITE A-LINE; BG TOTAL HEMOGLOBIN 8.2 g/dL (12.0-18.0); BG VENT MODE VENT - CPAP
[2019-10-19 13:08] LABS: % CD 3 POS. LYMPHOCYTES 68.1 % (57.5-86.2); ABSOLUTE CD 3 409 /uL (622-2402); ABSOLUTE CD 4 HELPER 216 /uL (359-1519); ABSOLUTE CD 8 SUPPRESSOR 192 /uL (109-897); CD4/CD8 RATIO 1.13 (0.92-3.72)
[2019-10-19] MEDS: MORPHINE SULFATE 2 MG/ML CPJ (NOT FOR IM USE) IV PRN (13:47)
[2019-10-20] VITALS (24 sets, daily range): BP systolic 97–158; BP diastolic 46–100
[2019-10-20] MEDS: IPRATROPIUM/ALBUTEROL 0.5-3(2.5)MG/3ML NEB HHN SCH ×6 (00:11→21:15)
[2019-10-20] MEDS: MORPHINE SULFATE 2 MG/ML CPJ (NOT FOR IM USE) IV PRN ×3 (05:07→18:44)
[2019-10-20] MEDS: BLOOD SUGAR DIAGNOSTIC STRIP TEST SCH ×4 (05:20→23:38)
[2019-10-20] MEDS: PIPERACILLIN/TAZOBACTAM 2.25 G in DEXTROSE 5% WATER 50 ML IV SCH ×4 (05:20→23:38)
[2019-10-20] MEDS: INSULIN LISPRO 100 UNITS/ML SUBCUT SCH ×4 (05:20→23:40)
[2019-10-20 05:48] LABS: CHLORIDE 115 mEq/L (98-107)
[2019-10-20 05:54] LABS: HEMATOCRIT. 23.8 % (36.0-48.0); HEMOGLOBIN. 8.1 g/dL (12.0-16.0); MEAN CORPUSCULAR HEMOGLOBIN 25.2 pg (28.0-32.0); MEAN CORPUSCULAR VOLUME 73.8 fL (81.0-99.0); MEAN PLATELET VOLUME 8.9 fl (7.4-10.4); PLATELET 133 x1000/uL (130-400); RED BLOOD CELL COUNT 3.22 mill/uL (4.2-5.4); RED CELL DISTRIBUTION WIDTH 16.1 % (11.6-14.6)
[2019-10-20 09:26] LABS: NUCLEATED RED BLOOD CELLS 1 /100 WBC; PLATELET ESTIMATE NORMAL
[2019-10-20] MEDS: PANTOPRAZOLE SODIUM 40 MG/VIAL IV SCH (10:02)
[2019-10-21] VITALS (24 sets, daily range): BP systolic 113–130; BP diastolic 58–83
[2019-10-21] MEDS: IPRATROPIUM/ALBUTEROL 0.5-3(2.5)MG/3ML NEB HHN SCH ×6 (00:40→20:36)
[2019-10-21] MEDS: MORPHINE SULFATE 2 MG/ML CPJ (NOT FOR IM USE) IV PRN ×3 (05:21→22:32)
[2019-10-21] MEDS: INSULIN LISPRO 100 UNITS/ML SUBCUT SCH ×3 (05:21→17:27)
[2019-10-21] MEDS: BLOOD SUGAR DIAGNOSTIC STRIP TEST SCH ×3 (05:21→17:27)
[2019-10-21] MEDS: PIPERACILLIN/TAZOBACTAM 2.25 G in DEXTROSE 5% WATER 50 ML IV SCH ×3 (05:21→17:15)
[2019-10-21] MEDS: PANTOPRAZOLE SODIUM 40 MG/VIAL IV SCH (08:36)
[2019-10-21] MEDS: SODIUM CHLORIDE 0.9% 1,000 ML IV SCH (17:15)
[2019-10-22] VITALS (10 sets, daily range): BP systolic 112–133; BP diastolic 73–91
[2019-10-22] MEDS: PIPERACILLIN/TAZOBACTAM 2.25 G in DEXTROSE 5% WATER 50 ML IV SCH ×4 (00:18→18:41)
[2019-10-22] MEDS: BLOOD SUGAR DIAGNOSTIC STRIP TEST SCH ×4 (00:19→18:19)
[2019-10-22] MEDS: IPRATROPIUM/ALBUTEROL 0.5-3(2.5)MG/3ML NEB HHN SCH ×6 (00:28→21:11)
[2019-10-22] MEDS: MORPHINE SULFATE 2 MG/ML CPJ (NOT FOR IM USE) IV PRN ×2 (04:08→17:52)
[2019-10-22] MEDS: INSULIN LISPRO 100 UNITS/ML SUBCUT SCH ×4 (06:00→18:00)
[2019-10-22] MEDS: SODIUM CHLORIDE 0.9% 1,000 ML IV SCH ×2 (06:08→21:13)
[2019-10-22] MEDS: PANTOPRAZOLE SODIUM 40 MG/VIAL IV SCH (09:25)
[2019-10-23] VITALS: BP 116/79
[2019-10-23] MEDS: BLOOD SUGAR DIAGNOSTIC STRIP TEST SCH
[2019-10-23] MEDS: IPRATROPIUM/ALBUTEROL 0.5-3(2.5)MG/3ML NEB HHN SCH ×6 (00:52→20:38)
[2019-10-23] MEDS: PIPERACILLIN/TAZOBACTAM 2.25 G in DEXTROSE 5% WATER 50 ML IV SCH ×3 (01:12→18:20)
[2019-10-23 04:00] VITALS: BP 131/85
[2019-10-23 08:00] VITALS: BP 133/85
[2019-10-23] MEDS: PANTOPRAZOLE SODIUM 40 MG/VIAL IV SCH (08:16)
[2019-10-23] MEDS: SODIUM CHLORIDE 0.9% 1,000 ML IV SCH ×2 (08:17→21:06)
[2019-10-23 12:00] VITALS: BP 137/86
[2019-10-23 16:00] VITALS: BP 112/70
[2019-10-23 20:00] VITALS: BP 131/82
[2019-10-24] VITALS: BP 143/81
[2019-10-24] MEDS: IPRATROPIUM/ALBUTEROL 0.5-3(2.5)MG/3ML NEB HHN SCH ×6 (00:36→21:28)
[2019-10-24 04:00] VITALS: BP 135/85
[2019-10-24] MEDS: PIPERACILLIN/TAZOBACTAM 2.25 G in DEXTROSE 5% WATER 50 ML IV SCH ×3 (06:44→18:01)
[2019-10-24 08:00] VITALS: BP 130/77
[2019-10-24] MEDS: PANTOPRAZOLE SODIUM 40 MG/VIAL IV SCH (09:27)
[2019-10-24] MEDS: SODIUM CHLORIDE 0.9% 1,000 ML IV SCH (11:55)
[2019-10-24 16:00] VITALS: BP 146/80
[2019-10-24 20:00] VITALS: BP 137/89
[2019-10-25] VITALS: BP 150/57
[2019-10-25] MEDS: IPRATROPIUM/ALBUTEROL 0.5-3(2.5)MG/3ML NEB HHN SCH ×6 (01:14→21:21)
[2019-10-25 04:00] VITALS: BP 151/80
[2019-10-25] MEDS: SODIUM CHLORIDE 0.9% 1,000 ML IV SCH ×2 (05:36→14:35)
[2019-10-25 07:05] LABS: HEMATOCRIT. 24.6 % (36.0-48.0); HEMOGLOBIN. 7.9 g/dL (12.0-16.0); MEAN CORPUSCULAR HEMOGLOBIN 23.9 pg (28.0-32.0); MEAN CORPUSCULAR VOLUME 74.4 fL (81.0-99.0); MEAN PLATELET VOLUME 9.6 fl (7.4-10.4); PLATELET 348 x1000/uL (130-400); RED BLOOD CELL COUNT 3.31 mill/uL (4.2-5.4); RED CELL DISTRIBUTION WIDTH 15.7 % (11.6-14.6)
[2019-10-25 07:40] LABS: CHLORIDE 115 mEq/L (98-107)
[2019-10-25 08:00] VITALS: BP 124/77
[2019-10-25] MEDS: PANTOPRAZOLE SODIUM 40 MG/VIAL IV SCH (08:44)
[2019-10-25] MEDS ORDERED: NON FORMULARY PATIENT HOME MED XX SCH (10:30)
[2019-10-25] MEDS ORDERED: [UNRECOGNIZED DRUG - REMARK] PO SCH (11:30)
[2019-10-25 12:00] VITALS: BP 115/75
[2019-10-25] MEDS ORDERED: [UNRECOGNIZED DRUG - REMARK] PO SCH (12:00)
[2019-10-25 16:00] VITALS: BP 120/72
[2019-10-25 16:31] LABS: PLATELET ESTIMATE NORMAL
[2019-10-25] MEDS ORDERED: PIPERACILLIN/TAZOBACTAM 3.375 G in DEXT 5% WATER 100 ML IV SCH (18:00)
[2019-10-25 20:00] VITALS: BP 122/78
== END 2019-10-25 22:40 | DRG 326 ==
LOC: ER 21:56 → 6EST 10-16 06:03 → EDBEDREQSVC 10-16 06:07 → EDBEDREQ 10-16 06:07 → EDBEDREQTM 10-16 06:07 → ENRESERV 10-16 08:46 → SUPCPDRO 10-16 08:51 → CVICU 10-17 18:24 → 6EST 10-22 13:03
PROVIDERS: ADMIT Internal Medicine; ATTEND Internal Medicine
PROC: 0DU607Z Supplement Stomach with Autologous Tissue Substitute, Open Approach (ICD-10-PCS; principal; 2019-10-17)
PROC: 5A1945Z Respiratory Ventilation, 24-96 Consecutive Hours (ICD-10-PCS; 2019-10-17)
PROC: 0D9A00Z Drainage of Jejunum with Drainage Device, Open Approach (ICD-10-PCS; 2019-10-17)
PROC: 0DH60UZ Insertion of Feeding Device into Stomach, Open Approach (ICD-10-PCS; 2019-10-17)
PROC: 0BH17EZ Insertion of Endotracheal Airway into Trachea, Via Natural or Artificial Opening (ICD-10-PCS; 2019-10-17)
DX: K25.1 Acute gastric ulcer with perforation (principal); E43 Unspecified severe protein-calorie malnutrition; J69.0 Pneumonitis due to inhalation of food and vomit; J96.00 Acute respiratory failure, unspecified whether with hypoxia or hypercapnia; G82.50 Quadriplegia, unspecified; G92 Toxic encephalopathy; D62 Acute posthemorrhagic anemia; N17.9 Acute kidney failure, unspecified; R18.8 Other ascites; G62.81 Critical illness polyneuropathy; Z68.1 Body mass index [BMI] 19.9 or less, adult; I10 Essential (primary) hypertension; R73.9 Hyperglycemia, unspecified; F14.10 Cocaine abuse, uncomplicated; R26.9 Unspecified abnormalities of gait and mobility; F17.210 Nicotine dependence, cigarettes, uncomplicated; G40.909 Epilepsy, unspecified, not intractable, without status epilepticus; J44.9 Chronic obstructive pulmonary disease, unspecified; Z78.1 Physical restraint status; Z87.11 Personal history of peptic ulcer disease; Z79.899 Other long term (current) drug therapy; Z93.4 Other artificial openings of gastrointestinal tract status
CPT/HCPCS: 36415; 36600; 71045; 74021; 74176; 74177; 80048; 80053; 80061; 80305; 80320; 81003; 82140; 82375; 82607; 82746; 82805; 82962; 83036; 83540; 83550; 83605; 83735; 83880; 84100; 84439; 84443; 84478; 84484; 85025; 86359; 86360; 93005; 93970; 94002; 94003; 94640; 96374; 96375; 96376; 97116; 97162; 97166; 97530; 99285; C1758; C1893; C9113; J0330; J0690; J1650; J1815; J1885; J2060; J2250; J2270; J2370; J2405; J2543; J2704; J2710; J2765; J3010; J3480; J3490; J7030; J7040; J7060; P9041; Q9963; Q9967; Q9968; G0480

== ENCOUNTER 2019-10-25 22:40 | Inpatient (IN) | payer MEDICARE, MEDICAID ==
[~2019-10-25] VITALS: Ht 172.7 cm; Wt 61.2 kg
[2019-10-25 22:40] VITALS: BP 137/82
[2019-10-26] MEDS ORDERED: ONDANSETRON HCL 4MG/2ML INJ IV PRN
[2019-10-26] MEDS ORDERED: ACETAMINOPHEN 650MG SUPP PR PRN
[2019-10-26] MEDS: IPRATROPIUM/ALBUTEROL 0.5-3(2.5)MG/3ML NEB HHN PRN ×3 (00:45→23:42)
[2019-10-26] MEDS: PIPERACILLIN/TAZOBACTAM 3.375 G in DEXT 5% WATER 100 ML IV SCH ×3 (06:37→18:09)
[2019-10-26] MEDS: SODIUM CHLORIDE 0.9% 1,000 ML IV SCH ×2 (06:37→12:59)
[2019-10-26 07:08] LABS: HEMATOCRIT. 23.7 % (36.0-48.0); HEMOGLOBIN. 7.8 g/dL (12.0-16.0); MEAN CORPUSCULAR HEMOGLOBIN 24.1 pg (28.0-32.0); MEAN CORPUSCULAR VOLUME 73.6 fL (81.0-99.0); MEAN PLATELET VOLUME 9.2 fl (7.4-10.4); PLATELET 422 x1000/uL (130-400); RED BLOOD CELL COUNT 3.22 mill/uL (4.2-5.4); RED CELL DISTRIBUTION WIDTH 15.3 % (11.6-14.6)
[2019-10-26 08:02] VITALS: BP 131/79
[2019-10-26 08:39] LABS: CHLORIDE 111 mEq/L (98-107)
[2019-10-26] MEDS ORDERED: PANTOPRAZOLE SODIUM 40 MG/VIAL IV SCH (09:00)
[2019-10-26] MEDS: ACYCLOVIR 400MG TAB PO SCH (09:45)
[2019-10-26 14:51] LABS: NUCLEATED RED BLOOD CELLS 1 /100 WBC; PLATELET ESTIMATE NORMAL
[2019-10-26] MEDS: SUCRALFATE 1 G/10 ML UDC PO SCH ×2 (17:18→22:20)
[2019-10-26] MEDS: FERROUS SULFATE 300MG/5ML UDC PO SCH (17:18)
[2019-10-26] MEDS: ACETAMINOPHEN 325MG TABLET PO PRN (17:23)
[2019-10-26 20:00] VITALS: BP 125/77
[2019-10-26] MEDS: SENNOSIDES/DOCUSATE SOD 8.6/50MG TABLET PO SCH (22:21)
[2019-10-26] MEDS: ASCORBIC ACID 500 MG TABLET PO SCH (22:21)
[2019-10-27] MEDS: PIPERACILLIN/TAZOBACTAM 3.375 G in DEXT 5% WATER 100 ML IV SCH ×4 (00:24→18:34)
[2019-10-27] MEDS: ACETAMINOPHEN 325MG TABLET PO PRN ×2 (03:08→20:14)
[2019-10-27] MEDS: PANTOPRAZOLE 40MG DR TABLET PO SCH (06:23)
[2019-10-27] MEDS: SUCRALFATE 1 G/10 ML UDC PO SCH ×4 (06:23→20:43)
[2019-10-27 08:00] VITALS: BP 111/74
[2019-10-27] MEDS: FERROUS SULFATE 300MG/5ML UDC PO SCH ×3 (09:48→16:42)
[2019-10-27] MEDS: ZINC SULFATE 220 MG ( 50 ) CAPSULE PO SCH (09:48)
[2019-10-27] MEDS: ASCORBIC ACID 500 MG TABLET PO SCH ×2 (09:49→20:43)
[2019-10-27] MEDS: ACYCLOVIR 400MG TAB PO SCH (09:49)
[2019-10-27] MEDS: TENOFOVIR ALAFENAMIDE PO SCH (15:49)
[2019-10-27] MEDS: EMTRICITABINE PO SCH (15:49)
[2019-10-27] MEDS: RILPIVIRINE PO SCH (15:49)
[2019-10-27 20:00] VITALS: BP 135/77
[2019-10-27] MEDS: SENNOSIDES/DOCUSATE SOD 8.6/50MG TABLET PO SCH (20:48)
[2019-10-28] MEDS: PIPERACILLIN/TAZOBACTAM 3.375 G in DEXT 5% WATER 100 ML IV SCH ×4 (00:23→18:41)
[2019-10-28] MEDS: ACETAMINOPHEN 325MG TABLET PO PRN ×2 (02:46→14:38)
[2019-10-28] MEDS: PANTOPRAZOLE 40MG DR TABLET PO SCH (06:22)
[2019-10-28] MEDS: SUCRALFATE 1 G/10 ML UDC PO SCH ×4 (06:22→21:20)
[2019-10-28 07:24] LABS: CHLORIDE 108 mEq/L (98-107)
[2019-10-28 07:41] LABS: PHOSPHORUS 2.8 mg/dL (2.5-4.9)
[2019-10-28 07:51] VITALS: BP 128/77
[2019-10-28 08:09] LABS: HEMATOCRIT. 26.2 % (36.0-48.0); HEMOGLOBIN. 8.5 g/dL (12.0-16.0); MEAN CORPUSCULAR HEMOGLOBIN 23.7 pg (28.0-32.0); MEAN CORPUSCULAR VOLUME 73.2 fL (81.0-99.0); MEAN PLATELET VOLUME 9.3 fl (7.4-10.4); PLATELET 658 x1000/uL (130-400); RED BLOOD CELL COUNT 3.58 mill/uL (4.2-5.4); RED CELL DISTRIBUTION WIDTH 15.7 % (11.6-14.6)
[2019-10-28] MEDS: FERROUS SULFATE 300MG/5ML UDC PO SCH ×3 (08:51→16:21)
[2019-10-28] MEDS: ACYCLOVIR 400MG TAB PO SCH (08:51)
[2019-10-28] MEDS: EMTRICITABINE PO SCH (08:51)
[2019-10-28] MEDS: TENOFOVIR ALAFENAMIDE PO SCH (08:51)
[2019-10-28] MEDS: ZINC SULFATE 220 MG ( 50 ) CAPSULE PO SCH (08:51)
[2019-10-28] MEDS: ASCORBIC ACID 500 MG TABLET PO SCH ×2 (08:51→21:20)
[2019-10-28] MEDS: RILPIVIRINE PO SCH (08:51)
[2019-10-28 13:34] LABS: PLATELET ESTIMATE INCREASED
[2019-10-28] MEDS ORDERED: POTASSIUM CHLORIDE 20MEQ TABLET SR PO NR (14:30)
[2019-10-28] MEDS: MAGNESIUM OXIDE 400MG TABLET PO SCH ×2 (15:50→21:20)
[2019-10-28 20:00] VITALS: BP 116/68
[2019-10-28] MEDS: SENNOSIDES/DOCUSATE SOD 8.6/50MG TABLET PO SCH (21:20)
[2019-10-29] MEDS: PIPERACILLIN/TAZOBACTAM 3.375 G in DEXT 5% WATER 100 ML IV SCH ×4 (00:16→18:37)
[2019-10-29] MEDS: ZOLPIDEM TARTRATE 5MG TABLET PO PRN ×2 (00:26→20:31)
[2019-10-29] MEDS: PANTOPRAZOLE 40MG DR TABLET PO SCH (06:20)
[2019-10-29] MEDS: SUCRALFATE 1 G/10 ML UDC PO SCH ×4 (06:20→20:31)
[2019-10-29 07:32] LABS: HEMATOCRIT. 25.9 % (36.0-48.0); HEMOGLOBIN. 8.4 g/dL (12.0-16.0); MEAN CORPUSCULAR HEMOGLOBIN 23.6 pg (28.0-32.0); MEAN CORPUSCULAR VOLUME 72.9 fL (81.0-99.0); PLATELET 734 x1000/uL (130-400); RED BLOOD CELL COUNT 3.55 mill/uL (4.2-5.4); RED CELL DISTRIBUTION WIDTH 16.3 % (11.6-14.6)
[2019-10-29 08:00] VITALS: BP 129/75
[2019-10-29 08:16] LABS: CHLORIDE 107 mEq/L (98-107)
[2019-10-29] MEDS: MAGNESIUM OXIDE 400MG TABLET PO SCH ×2 (08:32→20:31)
[2019-10-29] MEDS: RILPIVIRINE PO SCH (08:32)
[2019-10-29] MEDS: ASCORBIC ACID 500 MG TABLET PO SCH ×2 (08:32→20:31)
[2019-10-29] MEDS: ZINC SULFATE 220 MG ( 50 ) CAPSULE PO SCH (08:32)
[2019-10-29] MEDS: TENOFOVIR ALAFENAMIDE PO SCH (08:32)
[2019-10-29] MEDS: EMTRICITABINE PO SCH (08:32)
[2019-10-29] MEDS: FERROUS SULFATE 300MG/5ML UDC PO SCH ×3 (08:32→17:03)
[2019-10-29] MEDS: ACYCLOVIR 400MG TAB PO SCH (08:32)
[2019-10-29 19:50] LABS: PLATELET ESTIMATE INCREASED
[2019-10-29 20:00] VITALS: BP 129/62
[2019-10-29] MEDS: SENNOSIDES/DOCUSATE SOD 8.6/50MG TABLET PO SCH (20:31)
[2019-10-30] MEDS: PIPERACILLIN/TAZOBACTAM 3.375 G in DEXT 5% WATER 100 ML IV SCH ×4 (00:46→18:12)
[2019-10-30] MEDS: SUCRALFATE 1 G/10 ML UDC PO SCH ×4 (06:13→20:25)
[2019-10-30] MEDS: PANTOPRAZOLE 40MG DR TABLET PO SCH (06:13)
[2019-10-30 08:28] VITALS: BP 112/64
[2019-10-30] MEDS: EMTRICITABINE PO SCH (08:51)
[2019-10-30] MEDS: ASCORBIC ACID 500 MG TABLET PO SCH ×2 (08:51→20:26)
[2019-10-30] MEDS: FERROUS SULFATE 300MG/5ML UDC PO SCH ×3 (08:51→17:17)
[2019-10-30] MEDS: RILPIVIRINE PO SCH (08:51)
[2019-10-30] MEDS: TENOFOVIR ALAFENAMIDE PO SCH (08:51)
[2019-10-30] MEDS: ACYCLOVIR 400MG TAB PO SCH (08:52)
[2019-10-30] MEDS: ZINC SULFATE 220 MG ( 50 ) CAPSULE PO SCH (11:07)
[2019-10-30] MEDS: ACETAMINOPHEN 325MG TABLET PO PRN (14:21)
[2019-10-30] MEDS: ZOLPIDEM TARTRATE 5MG TABLET PO PRN (18:21)
[2019-10-30 20:00] VITALS: BP 110/68
[2019-10-30] MEDS: SENNOSIDES/DOCUSATE SOD 8.6/50MG TABLET PO SCH (20:25)
[2019-10-31] MEDS: PIPERACILLIN/TAZOBACTAM 3.375 G in DEXT 5% WATER 100 ML IV SCH ×4 (00:31→18:17)
[2019-10-31] MEDS: ACETAMINOPHEN 325MG TABLET PO PRN ×3 (00:36→17:14)
[2019-10-31] MEDS: PANTOPRAZOLE 40MG DR TABLET PO SCH (06:04)
[2019-10-31] MEDS: SUCRALFATE 1 G/10 ML UDC PO SCH ×4 (06:04→20:31)
[2019-10-31 07:53] LABS: HEMATOCRIT. 26.1 % (36.0-48.0); HEMOGLOBIN. 8.4 g/dL (12.0-16.0); MEAN CORPUSCULAR HEMOGLOBIN 23.8 pg (28.0-32.0); MEAN CORPUSCULAR VOLUME 73.6 fL (81.0-99.0); MEAN PLATELET VOLUME 8.6 fl (7.4-10.4); PLATELET 847 x1000/uL (130-400); RED BLOOD CELL COUNT 3.54 mill/uL (4.2-5.4); RED CELL DISTRIBUTION WIDTH 16.1 % (11.6-14.6)
[2019-10-31 08:00] VITALS: BP 128/76
[2019-10-31] MEDS: FERROUS SULFATE 300MG/5ML UDC PO SCH ×3 (09:36→16:59)
[2019-10-31] MEDS: EMTRICITABINE PO SCH (09:36)
[2019-10-31] MEDS: ASCORBIC ACID 500 MG TABLET PO SCH ×2 (09:36→20:31)
[2019-10-31] MEDS: TENOFOVIR ALAFENAMIDE PO SCH (09:36)
[2019-10-31] MEDS: RILPIVIRINE PO SCH (09:36)
[2019-10-31] MEDS: ZINC SULFATE 220 MG ( 50 ) CAPSULE PO SCH (09:36)
[2019-10-31] MEDS: ACYCLOVIR 400MG TAB PO SCH (09:37)
[2019-10-31 12:41] LABS: PLATELET ESTIMATE MARKEDLY INCREASED
[2019-10-31] MEDS: ZOLPIDEM TARTRATE 5MG TABLET PO PRN (18:18)
[2019-10-31 20:00] VITALS: BP 126/64
[2019-10-31] MEDS: SENNOSIDES/DOCUSATE SOD 8.6/50MG TABLET PO SCH (20:31)
[2019-11-01] MEDS: PIPERACILLIN/TAZOBACTAM 3.375 G in DEXT 5% WATER 100 ML IV SCH ×4 (00:32→18:18)
[2019-11-01] MEDS: PANTOPRAZOLE 40MG DR TABLET PO SCH (06:09)
[2019-11-01] MEDS: SUCRALFATE 1 G/10 ML UDC PO SCH ×4 (06:09→22:01)
[2019-11-01 08:00] VITALS: BP 114/69
[2019-11-01] MEDS: FERROUS SULFATE 300MG/5ML UDC PO SCH ×3 (08:50→16:45)
[2019-11-01] MEDS: EMTRICITABINE PO SCH (08:50)
[2019-11-01] MEDS: ACYCLOVIR 400MG TAB PO SCH (08:50)
[2019-11-01] MEDS: TENOFOVIR ALAFENAMIDE PO SCH (08:50)
[2019-11-01] MEDS: ZINC SULFATE 220 MG ( 50 ) CAPSULE PO SCH (08:50)
[2019-11-01] MEDS: RILPIVIRINE PO SCH (08:50)
[2019-11-01] MEDS: ASCORBIC ACID 500 MG TABLET PO SCH ×2 (08:50→22:01)
[2019-11-01] MEDS: ACETAMINOPHEN 325MG TABLET PO PRN (16:56)
[2019-11-01 20:00] VITALS: BP 115/62
[2019-11-01] MEDS: SENNOSIDES/DOCUSATE SOD 8.6/50MG TABLET PO SCH (22:01)
[2019-11-01] MEDS: ZOLPIDEM TARTRATE 5MG TABLET PO PRN (22:15)
[2019-11-01] MEDS ORDERED: IOHEXOL-300 100 ML BOTTLE ONE (22:57)
[2019-11-02] VITALS (13 sets, daily range): BP systolic 118–154; BP diastolic 57–96
[2019-11-02] MEDS: PANTOPRAZOLE 40MG DR TABLET PO SCH (06:22)
[2019-11-02] MEDS: SUCRALFATE 1 G/10 ML UDC PO SCH ×4 (06:23→20:22)
[2019-11-02 06:35] LABS: HEMATOCRIT. 24.8 % (36.0-48.0); HEMOGLOBIN. 8.2 g/dL (12.0-16.0); MEAN CORPUSCULAR HEMOGLOBIN 23.8 pg (28.0-32.0); MEAN CORPUSCULAR VOLUME 71.7 fL (81.0-99.0); MEAN PLATELET VOLUME 7.9 fl (7.4-10.4); PLATELET 820 x1000/uL (130-400); RED BLOOD CELL COUNT 3.45 mill/uL (4.2-5.4); RED CELL DISTRIBUTION WIDTH 15.9 % (11.6-14.6)
[2019-11-02 06:45] LABS: PROTHROMBIN TIME 10.5 sec (9.6-11.0)
[2019-11-02 06:55] LABS: CHLORIDE 106 mEq/L (98-107)
[2019-11-02 07:15] LABS: PHOSPHORUS 3.5 mg/dL (2.5-4.9)
[2019-11-02] MEDS: FERROUS SULFATE 300MG/5ML UDC PO SCH ×3 (08:38→16:46)
[2019-11-02] MEDS: EMTRICITABINE PO SCH ×2 (08:39→12:34)
[2019-11-02] MEDS: ZINC SULFATE 220 MG ( 50 ) CAPSULE PO SCH (08:39)
[2019-11-02] MEDS: RILPIVIRINE PO SCH ×2 (08:39→12:34)
[2019-11-02] MEDS: ASCORBIC ACID 500 MG TABLET PO SCH ×2 (08:39→20:22)
[2019-11-02] MEDS: ACYCLOVIR 400MG TAB PO SCH ×2 (08:39→12:34)
[2019-11-02] MEDS: TENOFOVIR ALAFENAMIDE PO SCH ×2 (08:39→12:34)
[2019-11-02] MEDS ORDERED: FENTANYL CITRATE/PF 50MCG/ML 2ML VIAL ONE (09:16)
[2019-11-02] MEDS ORDERED: LIDOCAINE HCL 1% 20ML VIAL (Pyxis) INJ ONE (09:16)
[2019-11-02] MEDS ORDERED: SODIUM BICARBONATE 4% (2.4MEQ) 5ML VIAL IV ONE (09:16)
[2019-11-02] MEDS ORDERED: FENTANYL CITRATE/PF 50MCG/ML 2ML VIAL IV SCH (10:45)
[2019-11-02] MEDS: ACETAMINOPHEN 325MG TABLET PO PRN (15:29)
[2019-11-02 16:04] LABS: PLATELET ESTIMATE MARKEDLY INCREASED
[2019-11-02] MEDS: ZOLPIDEM TARTRATE 5MG TABLET PO PRN (20:22)
[2019-11-02] MEDS: SENNOSIDES/DOCUSATE SOD 8.6/50MG TABLET PO SCH (20:22)
[2019-11-03] MEDS: TRAMADOL 50MG TABLET PO PRN (01:45)
[2019-11-03 04:08] LABS: 25-HYDROXY VITAMIN D3 6.6 ng/mL (.)
[2019-11-03] MEDS: SUCRALFATE 1 G/10 ML UDC PO SCH ×4 (06:31→21:58)
[2019-11-03] MEDS: PANTOPRAZOLE 40MG DR TABLET PO SCH (06:32)
[2019-11-03 08:30] VITALS: BP 149/95
[2019-11-03] MEDS: ACYCLOVIR 400MG TAB PO SCH (08:43)
[2019-11-03] MEDS: ZINC SULFATE 220 MG ( 50 ) CAPSULE PO SCH (08:43)
[2019-11-03] MEDS: EMTRICITABINE PO SCH (08:43)
[2019-11-03] MEDS: FERROUS SULFATE 300MG/5ML UDC PO SCH ×3 (08:43→17:33)
[2019-11-03] MEDS: TENOFOVIR ALAFENAMIDE PO SCH (08:43)
[2019-11-03] MEDS: ASCORBIC ACID 500 MG TABLET PO SCH ×2 (08:43→21:58)
[2019-11-03] MEDS: RILPIVIRINE PO SCH (08:43)
[2019-11-03] MEDS: ACETAMINOPHEN 325MG TABLET PO PRN (15:23)
[2019-11-03] MEDS ORDERED: ERGOCALCIFEROL 50000UNITS CAPSULE PO SCH (18:30)
[2019-11-03] MEDS: CEFTRIAXONE 1 G PREMIX 50 ML IV SCH (18:34)
[2019-11-03 20:00] VITALS: BP 113/66
[2019-11-03] MEDS: METRONIDAZOLE 500MG TABLET PO SCH (21:58)
[2019-11-03] MEDS: ZOLPIDEM TARTRATE 5MG TABLET PO PRN (21:59)
[2019-11-03] MEDS: SENNOSIDES/DOCUSATE SOD 8.6/50MG TABLET PO SCH (21:59)
[2019-11-04] MEDS: SUCRALFATE 1 G/10 ML UDC PO SCH ×4 (05:44→21:35)
[2019-11-04] MEDS: PANTOPRAZOLE 40MG DR TABLET PO SCH (06:48)
[2019-11-04 07:32] LABS: BASOPHILS % 0.6 % (0.0-2.0); EOSINOPHILS % 0.9 % (0.0-5.0); HEMOGLOBIN. 7.7 g/dL (12.0-16.0); LYMPHOCYTES % 15.1 % (20.0-50.0); MEAN CORPUSCULAR HEMOGLOBIN 23.9 pg (28.0-32.0); MEAN PLATELET VOLUME 7.8 fl (7.4-10.4); MONOCYTES % 9.6 % (2.0-8.0); NEUTROPHILS % 73.8 % (40.0-76.0); PLATELET 735 x1000/uL (130-400); RED CELL DISTRIBUTION WIDTH 16.3 % (11.6-14.6)
[2019-11-04 08:00] VITALS: BP 122/77
[2019-11-04 08:11] LABS: CHLORIDE 105 mEq/L (98-107)
[2019-11-04 08:21] LABS: PHOSPHORUS 3.6 mg/dL (2.5-4.9)
[2019-11-04] MEDS: ZINC SULFATE 220 MG ( 50 ) CAPSULE PO SCH (08:32)
[2019-11-04] MEDS: ASCORBIC ACID 500 MG TABLET PO SCH ×2 (08:32→21:35)
[2019-11-04] MEDS: METRONIDAZOLE 500MG TABLET PO SCH ×2 (08:32→21:35)
[2019-11-04] MEDS: ACYCLOVIR 400MG TAB PO SCH (08:34)
[2019-11-04] MEDS: EMTRICITABINE PO SCH (08:34)
[2019-11-04] MEDS: TENOFOVIR ALAFENAMIDE PO SCH (08:34)
[2019-11-04] MEDS: RILPIVIRINE PO SCH (08:34)
[2019-11-04] MEDS: FERROUS SULFATE 300MG/5ML UDC PO SCH ×3 (08:36→16:29)
[2019-11-04] MEDS: ACETAMINOPHEN 325MG TABLET PO PRN (10:47)
[2019-11-04] MEDS: CEFTRIAXONE 1 G PREMIX 50 ML IV SCH (15:15)
[2019-11-04 20:00] VITALS: BP 139/78
[2019-11-04] MEDS: SENNOSIDES/DOCUSATE SOD 8.6/50MG TABLET PO SCH (21:35)
[2019-11-04] MEDS: TRAMADOL 50MG TABLET PO PRN (23:30)
[2019-11-05] MEDS: PANTOPRAZOLE 40MG DR TABLET PO SCH (07:22)
[2019-11-05] MEDS: SUCRALFATE 1 G/10 ML UDC PO SCH ×2 (07:22→10:55)
[2019-11-05] MEDS: ACETAMINOPHEN 325MG TABLET PO PRN (07:49)
[2019-11-05 08:00] VITALS: BP 124/72
[2019-11-05 08:04] VITALS: BP 124/72
[2019-11-05] MEDS: FERROUS SULFATE 300MG/5ML UDC PO SCH ×2 (08:53→13:00)
[2019-11-05] MEDS: ACYCLOVIR 400MG TAB PO SCH (08:53)
[2019-11-05] MEDS: ZINC SULFATE 220 MG ( 50 ) CAPSULE PO SCH (08:53)
[2019-11-05] MEDS: EMTRICITABINE PO SCH (08:53)
[2019-11-05] MEDS: ASCORBIC ACID 500 MG TABLET PO SCH (08:53)
[2019-11-05] MEDS: METRONIDAZOLE 500MG TABLET PO SCH (08:53)
[2019-11-05] MEDS: TENOFOVIR ALAFENAMIDE PO SCH (08:53)
[2019-11-05] MEDS: RILPIVIRINE PO SCH (08:53)
[2019-11-05 11:56] VITALS: BP 125/78
== END 2019-11-05 14:30 | disposition home health service (06) | DRG 73 ==
PROVIDERS: ADMIT Physical Medicine & Rehabilitation Spinal Cord Injury Medicine; ATTEND Internal Medicine
DX: G62.81 Critical illness polyneuropathy (principal); E43 Unspecified severe protein-calorie malnutrition; G82.50 Quadriplegia, unspecified; K27.5 Chronic or unspecified peptic ulcer, site unspecified, with perforation; D62 Acute posthemorrhagic anemia; N17.9 Acute kidney failure, unspecified; R18.8 Other ascites; D63.8 Anemia in other chronic diseases classified elsewhere; D72.829 Elevated white blood cell count, unspecified; F09 Unspecified mental disorder due to known physiological condition; F14.10 Cocaine abuse, uncomplicated; F17.200 Nicotine dependence, unspecified, uncomplicated; F32.9 Major depressive disorder, single episode, unspecified; F41.9 Anxiety disorder, unspecified; G40.909 Epilepsy, unspecified, not intractable, without status epilepticus; I10 Essential (primary) hypertension; J44.9 Chronic obstructive pulmonary disease, unspecified; Z87.11 Personal history of peptic ulcer disease
CPT/HCPCS: 36415; 71045; 74177; 76937; 77012; 80048; 80053; 82306; 83735; 84100; 84134; 85025; 87070; 87075; 92523; 92610; 93970; 97110; 97116; 97162; 97167; 97530; 97535; 99152; 99153; C1725; C1729; C1769; C1893; C9113; J0696; J2543; J3010; J3490; J7030; J7040; J7060; J7620; L8514; Q9967; G0500

== ENCOUNTER 2020-02-09 16:58 | Inpatient (IN) | payer MEDICARE, MEDICAID ==
[~2020-02-09] VITALS: Ht 162.6 cm; Wt 44.9 kg
[2020-02-09] MEDS ORDERED: KETOROLAC 30MG/ML VIAL IV STA (17:10)
[2020-02-09] MEDS ORDERED: SODIUM CHLORIDE 0.9% 1,000 ML IV ONE ×2 (17:10→22:45)
[2020-02-09] MEDS ORDERED: ONDANSETRON HCL 4MG/2ML INJ IV STA (17:10)
[2020-02-09 17:39] LABS: BASOPHILS % 0.1 % (0.0-2.0); EOSINOPHILS % 0.4 % (0.0-5.0); HEMATOCRIT. 52.7 % (36.0-48.0); HEMOGLOBIN. 16.9 g/dL (12.0-16.0); LYMPHOCYTES % 14.3 % (20.0-50.0); MEAN CORPUSCULAR HEMOGLOBIN 23.6 pg (28.0-32.0); MEAN CORPUSCULAR VOLUME 73.5 fL (81.0-99.0); MEAN PLATELET VOLUME 8.9 fl (7.4-10.4); MONOCYTES % 9.2 % (2.0-8.0); PLATELET 273 x1000/uL (130-400); RED BLOOD CELL COUNT 7.17 mill/uL (4.2-5.4); RED CELL DISTRIBUTION WIDTH 17.2 % (11.6-14.6)
[2020-02-09 17:45] LABS: CHLORIDE 100 mEq/L (98-107)
[2020-02-09 17:46] LABS: PROTHROMBIN TIME 11.2 sec (9.6-11.0)
[2020-02-09] MEDS ORDERED: DIATR MEGLU/DIATRIZOATE SOLN 30ML ONE (18:55)
[2020-02-09 23:34] LABS: CLARITY URINE CLOUDY (CLEAR); COLOR URINE YELLOW (YELLOW); KETONES URINE NEGATIVE (NEGATIVE); LEUKOCYTE ESTERASE URINE TRACE (NEGATIVE); NITRITE URINE NEGATIVE (NEGATIVE); OCCULT BLOOD URINE 2+ (NEGATIVE); PROTEIN URINE 1+ (NEGATIVE); SPECIFIC GRAVITY URINE 1.023 (1.005-1.030)
[2020-02-10] MEDS ORDERED: ONDANSETRON HCL 4MG/2ML INJ IV STA (00:48)
[2020-02-10] MEDS ORDERED: KETOROLAC 30MG/ML VIAL IV PRN (02:00)
[2020-02-10] MEDS ORDERED: ONDANSETRON HCL 4MG/2ML INJ IV PRN ×2 (02:00→13:30)
[2020-02-10] MEDS: MORPHINE SULFATE 2 MG/ML CPJ (NOT FOR IM USE) IV PRN ×4 (06:06→22:02)
[2020-02-10] MEDS: PANTOPRAZOLE SODIUM 40 MG/VIAL IV SCH ×2 (06:06→17:30)
[2020-02-10] MEDS ORDERED: DIPHENHYDRAMINE 50MG/ML VIAL IV PRN (13:30)
[2020-02-10] MEDS ORDERED: IPRATROPIUM/ALBUTEROL 0.5-3(2.5)MG/3ML NEB HHN PRN (13:30)
[2020-02-10 14:04] VITALS: BP 151/92
[2020-02-10 16:00] VITALS: BP 145/94
[2020-02-10] MEDS: SODIUM CHLORIDE 0.9% 1,000 ML IV SCH (17:30)
[2020-02-10] MEDS ORDERED: CLONIDINE HCL 0.1MG/24HR PATCH TD SCH (18:00)
[2020-02-10 20:00] VITALS: BP 130/78
[2020-02-11] VITALS: BP 150/91
[2020-02-11] MEDS: MORPHINE SULFATE 2 MG/ML CPJ (NOT FOR IM USE) IV PRN ×4 (02:32→18:27)
[2020-02-11] MEDS: SODIUM CHLORIDE 0.9% 1,000 ML IV SCH (02:40)
[2020-02-11 04:00] VITALS: BP 134/77
[2020-02-11] MEDS: PANTOPRAZOLE SODIUM 40 MG/VIAL IV SCH ×2 (05:41→18:27)
[2020-02-11 06:35] LABS: HEMATOCRIT. 43.6 % (36.0-48.0); HEMOGLOBIN. 14.2 g/dL (12.0-16.0); MEAN CORPUSCULAR HEMOGLOBIN 24.2 pg (28.0-32.0); MEAN CORPUSCULAR VOLUME 74.5 fL (81.0-99.0); MEAN PLATELET VOLUME 9.3 fl (7.4-10.4); PLATELET 226 x1000/uL (130-400); RED BLOOD CELL COUNT 5.84 mill/uL (4.2-5.4); RED CELL DISTRIBUTION WIDTH 16.8 % (11.6-14.6)
[2020-02-11 06:46] LABS: CHLORIDE 110 mEq/L (98-107)
[2020-02-11 06:52] LABS: PHOSPHORUS 3.3 mg/dL (2.5-4.9)
[2020-02-11 08:00] VITALS: BP 148/90
[2020-02-11 12:00] VITALS: BP 149/83
[2020-02-11 14:10] LABS: PLATELET ESTIMATE NORMAL
[2020-02-11] MEDS: DEXT 5%/0.45% NACL KCL 20MEQ/L 1,000 ML IV SCH (14:10)
[2020-02-11 16:00] VITALS: BP 143/85
[2020-02-11 20:00] VITALS: BP 150/91
[2020-02-12] VITALS: BP 145/99
[2020-02-12 04:00] VITALS: BP 130/77
[2020-02-12] MEDS: LORAZEPAM 2MG/ML CPJ IV PRN ×2 (04:14→20:42)
[2020-02-12] MEDS: DEXT 5%/0.45% NACL KCL 20MEQ/L 1,000 ML IV SCH ×2 (05:48→16:48)
[2020-02-12] MEDS: PANTOPRAZOLE SODIUM 40 MG/VIAL IV SCH ×2 (05:50→17:35)
[2020-02-12 07:21] LABS: BASOPHILS % 0.2 % (0.0-2.0); EOSINOPHILS % 0.2 % (0.0-5.0); HEMATOCRIT. 46.8 % (36.0-48.0); HEMOGLOBIN. 15.2 g/dL (12.0-16.0); LYMPHOCYTES % 13.2 % (20.0-50.0); MEAN CORPUSCULAR VOLUME 74.1 fL (81.0-99.0); MEAN PLATELET VOLUME 8.9 fl (7.4-10.4); MONOCYTES % 13.4 % (2.0-8.0); PLATELET 241 x1000/uL (130-400); RED BLOOD CELL COUNT 6.32 mill/uL (4.2-5.4); RED CELL DISTRIBUTION WIDTH 16.5 % (11.6-14.6)
[2020-02-12 07:26] LABS: CHLORIDE 105 mEq/L (98-107)
[2020-02-12 07:32] LABS: PHOSPHORUS 2.2 mg/dL (2.5-4.9)
[2020-02-12 08:00] VITALS: BP 117/87
[2020-02-12] MEDS: MORPHINE SULFATE 2 MG/ML CPJ (NOT FOR IM USE) IV PRN ×2 (11:02→16:48)
[2020-02-12 12:00] VITALS: BP 102/78
[2020-02-12 16:00] VITALS: BP 126/87
[2020-02-12] MEDS ORDERED: POTASSIUM PHOS,M-BASIC-D-BASIC 20 MMOL in DEXT 5% WATER 243.3333 ML IV SCH (16:00)
[2020-02-12] MEDS: NICOTINE 21MG PATCH TD SCH (22:10)
[2020-02-12 23:08] VITALS: BP 117/78
[2020-02-13] VITALS: BP 124/83
[2020-02-13 04:00] VITALS: BP 121/61
[2020-02-13 04:01] VITALS: BP 124/83
[2020-02-13] MEDS: MORPHINE SULFATE 2 MG/ML CPJ (NOT FOR IM USE) IV PRN (04:01)
[2020-02-13] MEDS: PANTOPRAZOLE SODIUM 40 MG/VIAL IV SCH (05:56)
[2020-02-13] MEDS: LORAZEPAM 2MG/ML CPJ IV PRN (06:33)
[2020-02-13] MEDS: NICOTINE 21MG PATCH TD SCH (09:23)
[2020-02-13] MEDS ORDERED: DIATR MEGLU/DIATRIZOATE SOLN 120ML ONE (09:30)
[2020-02-13] MEDS ORDERED: POTASSIUM PHOS,M-BASIC-D-BASIC 20 MMOL in DEXT 5% WATER 243.3333 ML IV SCH (14:00)
== END 2020-02-13 12:15 | disposition left against medical advice (07) | DRG 388 ==
LOC: ER 16:58 → 6EST 23:04 → ENRESERV 02-10 12:04
PROVIDERS: ADMIT Internal Medicine; ATTEND Internal Medicine
PROC: 0D9670Z Drainage of Stomach with Drainage Device, Via Natural or Artificial Opening (ICD-10-PCS; principal; 2020-02-09)
DX: K56.50 Intestinal adhesions [bands], unspecified as to partial versus complete obstruction (principal); G93.41 Metabolic encephalopathy; N17.9 Acute kidney failure, unspecified; E87.0 Hyperosmolality and hypernatremia; J44.9 Chronic obstructive pulmonary disease, unspecified; F14.90 Cocaine use, unspecified, uncomplicated; N13.9 Obstructive and reflux uropathy, unspecified; F17.210 Nicotine dependence, cigarettes, uncomplicated; I10 Essential (primary) hypertension; G62.9 Polyneuropathy, unspecified; Z87.11 Personal history of peptic ulcer disease; Z98.890 Other specified postprocedural states; Z98.891 History of uterine scar from previous surgery
CPT/HCPCS: 36415; 71045; 74018; 74021; 74176; 74250; 80048; 80053; 81003; 83605; 83735; 84100; 84484; 85025; 99285; C9113; J1885; J2060; J2270; J2405; J3490; J7030; J7060; Q9963